=== PATIENT | male | born 1960 | race Two or more races ===

== ENCOUNTER 2016-11-26 10:24 | Inpatient (IN) | payer MEDICAID ==
[~2016-11-26] VITALS: Ht 167.6 cm; Wt 97.2 kg
[2016-11-26] MEDS ORDERED: MORPHINE SULF INJ 2 MG/ML SYRINGE 1ML IV ONE (11:00)
[2016-11-26] MEDS ORDERED: PANTOPRAZOLE 40 MG/10 ML VIAL IV ONE (11:00)
[2016-11-26] MEDS ORDERED: ASPirin 81 mg TAB PO ONE (11:00)
[2016-11-26] MEDS ORDERED: ONDANSETRON HCL 4 MG/2 ML VIAL IV ONE (11:00)
[2016-11-26 11:14] LABS: Hematocrit 42.6 % (41.0-53.0); Mean Corpuscular Hemoglobin 28.6 pg (28.0-32.0); Mean Corpuscular Hgb Conc. 32.8 g/dL (32.0-36.0); Mean Corpuscular Volume 87.2 fL (80.0-100.0); Mean Platelet Volume 8.7 fL (6.9-10.8); Platelet Count (auto) 193 10^3/uL (140-450); Red Cell Distribution Width 14.4 % (11.8-14.3); White Blood Cell 5.7 10^3/uL (4.4-10.8)
[2016-11-26 11:20] LABS: Metamyelocytes % 0; Myelocytes % 0; Promyelocytes % 0; Reactive Lymphocytes 0
[2016-11-26 11:36] LABS: INR 1.04 (0.9-1.15); Partial Thromboplastin Time 29.6 sec (22.64-33.71); Prothrombin Time 11.3 sec (9.37-12.3)
[2016-11-26 11:38] LABS: Albumin 3.4 g/dL (3.4-5.0); Alkaline Phosphatase 65 U/L (45-117); Amylase 47 U/L (25-115); Anion Gap 7 (5-15); Aspartate Aminotransferase 25 U/L (15-37); B-Type Natriuretic Peptide 861.72 pg/mL (0-100); BUN/Creatinine Ratio 16.3; Bilirubin, Total 0.7 mg/dL (0.2-1.0); Blood Urea Nitrogen 13 mg/dL (7-18); Calcium 8.9 mg/dL (8.5-10.1); Carbon Dioxide 30 mmol/L (21-32); Chloride 104 mmol/L (98-107); GFR African American 130 mL/min; GFR Non-African American 107 mL/min; Glucose 73 mg/dL (74-106); Magnesium 2.2 mg/dL (1.6-2.6); Potassium 4.6 mmol/L (3.5-5.1); Sodium 141 mmol/L (136-145); Total Protein 7.2 g/dL (6.4-8.2)
[2016-11-26 11:51] LABS: Temperature: 23.7 C (20.0-25.0)
[2016-11-26] MEDS ORDERED: FUROSEMIDE 40 MG/4 ML VIAL IV ONE (12:15)
[2016-11-26 12:28] LABS: Ovalocytes FEW; Platelet Estimate Adequate; Stomatocytes Few
[2016-11-26] MEDS ORDERED: THIAMINE HCL 100 MG/ML 2ML VIAL IV ONE (12:30)
[2016-11-26] MEDS ORDERED: LACTULOSE 20Gm/30ML SOLN PO PRN (12:30)
[2016-11-26] MEDS ORDERED: MORPHINE SULF INJ 2 MG/ML SYRINGE 1ML IV PRN ×2 (12:30)
[2016-11-26] MEDS ORDERED: LORazepam 0.5 MG TAB PO PRN (12:30)
[2016-11-26] MEDS ORDERED: HYDROcodone-ACET 5/325MG TAB PO PRN (12:30)
[2016-11-26] MEDS ORDERED: chlordiazePOXIDE HCL 25 MG CAP PO PRN (12:30)
[2016-11-26] MEDS ORDERED: PROMETHAZINE HCL 25 MG/ML 1ML IV PRN (12:30)
[2016-11-26] MEDS ORDERED: ACETAMINOPHEN 500 MG TAB PO PRN (12:30)
[2016-11-26] MEDS ORDERED: TEMAZEPAM 15 MG CAP PO PRN (12:30)
[2016-11-26] MEDS: SODIUM CHLOR 0.9% PF (SALINE LOCK) 10ML VIAL IV SCH ×2 (13:37→21:28)
[2016-11-26 14:43] VITALS: BP 108/75
[2016-11-26 17:19] VITALS: BP 115/73
[2016-11-26] MEDS: chlordiazePOXIDE HCL 5 MG CAP PO SCH ×2 (17:43→23:56)
[2016-11-26] MEDS: ATORVASTATIN 20 MG TAB PO SCH (21:28)
[2016-11-26 22:00] VITALS: BP 97/60
[2016-11-27] MEDS: NITROGLYCERIN 0.4 MG SL TAB SL PRN ×2 (04:21→04:27)
[2016-11-27 04:54] VITALS: BP 116/72
[2016-11-27] MEDS: SODIUM CHLOR 0.9% PF (SALINE LOCK) 10ML VIAL IV SCH ×3 (05:31→23:00)
[2016-11-27] MEDS: chlordiazePOXIDE HCL 5 MG CAP PO SCH ×3 (05:36→17:30)
[2016-11-27 06:47] LABS: B-Type Natriuretic Peptide 535.31 pg/mL (0-100)
[2016-11-27 06:51] LABS: Temperature: 22.9 C (20.0-25.0)
[2016-11-27 07:03] LABS: Albumin 3.2 g/dL (3.4-5.0); BUN/Creatinine Ratio 22.2; Bilirubin, Total 0.8 mg/dL (0.2-1.0); Total Protein 7.1 g/dL (6.4-8.2)
[2016-11-27 09:00] VITALS: BP 125/73
[2016-11-27] MEDS: THIAMINE HCL 100 MG/ML 2ML VIAL IV SCH (09:18)
[2016-11-27] MEDS: ENALAPRIL MALEATE 2.5 MG TAB PO SCH (09:19)
[2016-11-27] MEDS: ENOXAPARIN SOD 40 MG/0.4 ML SYRINGE SC SCH (09:19)
[2016-11-27] MEDS: ASPirin 81 mg TAB PO SCH (09:19)
[2016-11-27] MEDS: PANTOPRAZOLE 40 MG TAB PO SCH (09:20)
[2016-11-27] MEDS ORDERED: ISOSORBIDE MONONITRATE 60 MG TAB PO SCH (10:00)
[2016-11-27 12:48] VITALS: BP 99/60
[2016-11-27] MEDS ORDERED: ENAL2.5T PO (13:03)
[2016-11-27] MEDS ORDERED: POTA20TA53 PO (13:03)
[2016-11-27] MEDS ORDERED: CARV3.1240 PO (13:03)
[2016-11-27] MEDS ORDERED: ISOS10TA2 PO (13:03)
[2016-11-27] MEDS ORDERED: FURO40TA4 PO (13:03)
[2016-11-27] MEDS ORDERED: OMEP20CA74 OR (13:03)
[2016-11-27] MEDS ORDERED: FUROSEMIDE 20 MG/2 ML VIAL IV ONE (14:30)
[2016-11-27 16:37] VITALS: BP 98/51
[2016-11-27 20:35] VITALS: BP 93/50
[2016-11-27] MEDS: ATORVASTATIN 20 MG TAB PO SCH (23:00)
[2016-11-28] MEDS: chlordiazePOXIDE HCL 5 MG CAP PO SCH ×5 (00:54→23:44)
[2016-11-28 04:27] VITALS: BP 121/64
[2016-11-28] MEDS: SODIUM CHLOR 0.9% PF (SALINE LOCK) 10ML VIAL IV SCH ×3 (06:23→22:29)
[2016-11-28 08:13] VITALS: BP 104/72
[2016-11-28] MEDS: CARVEDILOL 3.125 MG TAB PO SCH ×3 (08:35→22:00)
[2016-11-28 09:00] VITALS: BP 104/72
[2016-11-28] MEDS: ENALAPRIL MALEATE 2.5 MG TAB PO SCH (10:00)
[2016-11-28] MEDS: ENOXAPARIN SOD 40 MG/0.4 ML SYRINGE SC SCH ×2 (10:22→10:30)
[2016-11-28] MEDS: THIAMINE HCL 100 MG/ML 2ML VIAL IV SCH (10:22)
[2016-11-28] MEDS: ASPirin 81 mg TAB PO SCH (10:25)
[2016-11-28] MEDS: PANTOPRAZOLE 40 MG TAB PO SCH (10:25)
[2016-11-28 13:00] VITALS: BP 105/70
[2016-11-28 17:00] VITALS: BP 104/70
[2016-11-28 22:00] VITALS: BP 110/60
[2016-11-28] MEDS: ATORVASTATIN 20 MG TAB PO SCH (22:30)
[2016-11-29 01:03] LABS: Urine Bilirubin Negative (Negative); Urine Blood Negative /uL (Negative); Urine Color Yellow (Yellow); Urine Glucose Normal (Normal); Urine Ketone Negative (Negative); Urine Nitrite Negative (Negative); Urine RBC <1 /hpf (0 - 3); Urine Urobilinogen Normal (Negative)
[2016-11-29 04:30] VITALS: BP 102/63
[2016-11-29] MEDS: SODIUM CHLOR 0.9% PF (SALINE LOCK) 10ML VIAL IV SCH ×3 (06:22→21:49)
[2016-11-29] MEDS: chlordiazePOXIDE HCL 5 MG CAP PO SCH ×3 (06:22→18:37)
[2016-11-29 07:48] LABS: Basophils # (auto) 0 uL; Basophils % (auto) 0.7 % (0.0-2.0); Eosinophils # (auto) 0.2 uL; Eosinophils % (auto) 3.7 % (0.0-7.0); Hematocrit 44.1 % (41.0-53.0); Hemoglobin 14.6 g/dL (13.5-17.5); Lymphocytes # (auto) 1.3 uL; Lymphocytes % (auto) 24.6 % (10.0-50.0); Mean Corpuscular Hemoglobin 28.9 pg (28.0-32.0); Mean Corpuscular Volume 87.7 fL (80.0-100.0); Mean Platelet Volume 9.1 fL (6.9-10.8); Monocytes % (auto) 17.5 % (0.0-12.0); Neutrophils # (auto) 2.9 uL; Neutrophils % (auto) 53.5 % (37.0-80.0); Nucleated Red Blood Cells % 0.1 %; Platelet Count (auto) 187 10^3/uL (140-450); Red Cell Distribution Width 13.9 % (11.8-14.3); White Blood Cell 5.5 10^3/uL (4.4-10.8)
[2016-11-29 08:23] LABS: Albumin 3.3 g/dL (3.4-5.0); BUN/Creatinine Ratio 18.7; Bilirubin, Total 0.6 mg/dL (0.2-1.0); Potassium 4.4 mmol/L (3.5-5.1); Total Protein 7.4 g/dL (6.4-8.2)
[2016-11-29 09:00] VITALS: BP 121/64
[2016-11-29 09:04] LABS: Temperature: 21.9 C (20.0-25.0)
[2016-11-29] MEDS ORDERED: IOHEXOL 350 MG/ML 100ML IJ ONE ×2 (09:33→09:50)
[2016-11-29] MEDS ORDERED: LIDOCAINE 2%HCL (LOCAL ANESTH.) INJ 20ML MDV ONE (09:33)
[2016-11-29] MEDS: ENALAPRIL MALEATE 2.5 MG TAB PO SCH (10:00)
[2016-11-29] MEDS: THIAMINE HCL 100 MG/ML 2ML VIAL IV SCH (10:00)
[2016-11-29] MEDS: ASPirin 81 mg TAB PO SCH (10:00)
[2016-11-29] MEDS: CARVEDILOL 3.125 MG TAB PO SCH ×2 (10:00→21:52)
[2016-11-29] MEDS: PANTOPRAZOLE 40 MG TAB PO SCH (10:00)
[2016-11-29] MEDS ORDERED: ANGIOMAX 250 MG VIAL IV ONE (10:25)
[2016-11-29] MEDS ORDERED: MIDAZOLAM HCL 1MG/1ML-2 ML VIAL ONE (10:26)
[2016-11-29] MEDS ORDERED: SODIUM CHL 0.9% 0 ML ONE (10:26)
[2016-11-29] MEDS ORDERED: fentaNYL CITRATE 100 MCG/2 ML VL ONE (10:26)
[2016-11-29] MEDS ORDERED: FUROSEMIDE 40 MG/4 ML VIAL IV ONE (13:00)
[2016-11-29 17:00] VITALS: BP 108/69
[2016-11-29] MEDS: ATORVASTATIN 20 MG TAB PO SCH (21:52)
[2016-11-29 22:00] VITALS: BP 107/61
[2016-11-30] MEDS: chlordiazePOXIDE HCL 5 MG CAP PO SCH ×2 (01:05→07:10)
[2016-11-30 05:11] VITALS: BP 109/73
[2016-11-30] MEDS: SODIUM CHLOR 0.9% PF (SALINE LOCK) 10ML VIAL IV SCH (05:21)
[2016-11-30 08:12] VITALS: BP 107/72
[2016-11-30] MEDS: THIAMINE HCL 100 MG/ML 2ML VIAL IV SCH (09:59)
[2016-11-30] MEDS: PANTOPRAZOLE 40 MG TAB PO SCH (09:59)
[2016-11-30] MEDS: ASPirin 81 mg TAB PO SCH (09:59)
[2016-11-30] MEDS: CARVEDILOL 3.125 MG TAB PO SCH (10:00)
[2016-11-30] MEDS: ENALAPRIL MALEATE 2.5 MG TAB PO SCH (10:01)
[2016-11-30] MEDS: ENOXAPARIN SOD 40 MG/0.4 ML SYRINGE SC SCH (10:02)
[2016-11-30 11:55] VITALS: BP 116/73
== END 2016-11-30 13:44 | disposition home or self-care (01) | DRG 191 ==
LOC: ER 10:24 → TELE 10:25 → TELE-E-ADS 15:02 → TELE-CENTR 15:29
PROVIDERS: ADMIT Internal Medicine; ATTEND Internal Medicine
PROC: 4A023N7 Measurement of Cardiac Sampling and Pressure, Left Heart, Percutaneous Approach (ICD-10-PCS; principal; 2016-11-29)
PROC: B2111ZZ Fluoroscopy of Multiple Coronary Arteries using Low Osmolar Contrast (ICD-10-PCS; 2016-11-29)
PROC: B41F1ZZ Fluoroscopy of Right Lower Extremity Arteries using Low Osmolar Contrast (ICD-10-PCS; 2016-11-29)
DX: I25.5 Ischemic cardiomyopathy (principal); I11.0 Hypertensive heart disease with heart failure; I50.42 Chronic combined systolic (congestive) and diastolic (congestive) heart failure; Z86.74 Personal history of sudden cardiac arrest; I25.10 Atherosclerotic heart disease of native coronary artery without angina pectoris; E78.5 Hyperlipidemia, unspecified; E66.9 Obesity, unspecified; F41.9 Anxiety disorder, unspecified; E78.00 Pure hypercholesterolemia, unspecified; K59.00 Constipation, unspecified; G47.00 Insomnia, unspecified; K57.30 Diverticulosis of large intestine without perforation or abscess without bleeding; I25.2 Old myocardial infarction; Z83.3 Family history of diabetes mellitus; Z82.49 Family history of ischemic heart disease and other diseases of the circulatory system; Z71.3 Dietary counseling and surveillance; Z68.34 Body mass index [BMI] 34.0-34.9, adult
CPT/HCPCS: 93458; 96374; 96375; 99291; G0278; 36415; 71010; 74176; 80053; 80061; 80320; 81001; 82150; 82550; 83690; 83735; 83880; 84443; 84484; 85007; 85025; 85027; 85379; 85610; 85652; 85730; 86141; 87081; 93005; 99152; 99153; C9113; J2250; J2405

== ENCOUNTER 2017-02-10 10:38 | Emergency (ER) | payer MEDICAID ==
[~2017-02-10] VITALS: Ht 167.6 cm; Wt 105.2 kg
[~2017-02-10 10:38] MED LIST: ATOR40TA52 PO; CARV3.1240 PO; ENAL2.5T PO; FURO40TA4 PO; ISOS10TA2 PO; NITR0.4S29 SL; OMEP20CA74 OR; POTA20TA53 PO
[2017-02-10 11:36] LABS: Basophils # (auto) 0.2 uL; Basophils % (auto) 4.5 % (0.0-2.0); Eosinophils # (auto) 0.2 uL; Eosinophils % (auto) 4.3 % (0.0-7.0); Hematocrit 38.6 % (41.0-53.0); Hemoglobin 12.8 g/dL (13.5-17.5); Lymphocytes # (auto) 0.9 uL; Lymphocytes % (auto) 19.6 % (10.0-50.0); Mean Corpuscular Hgb Conc. 33.2 g/dL (32.0-36.0); Mean Corpuscular Volume 84.3 fL (80.0-100.0); Monocytes # (auto) 0.9 uL; Neutrophils # (auto) 2.3 uL; Neutrophils % (auto) 51.2 % (37.0-80.0); Platelet Count (auto) 191 10^3/uL (140-450); Red Blood Cells 4.58 10^6/uL (4.5-5.90); White Blood Cell 4.6 10^3/uL (4.4-10.8)
[2017-02-10 11:38] LABS: Monocytes % (auto) 20.4 % (0.0-12.0)
[2017-02-10 12:28] LABS: Alanine Aminotransferase 23 U/L (16-61); Albumin 3.6 g/dL (3.4-5.0); Alkaline Phosphatase 74 U/L (45-117); Anion Gap 6 (5-15); Aspartate Aminotransferase 23 U/L (15-37); BUN/Creatinine Ratio 15.9; Bilirubin, Total 0.5 mg/dL (0.2-1.0); Blood Urea Nitrogen 11 mg/dL (7-18); Calcium 8.6 mg/dL (8.5-10.1); Carbon Dioxide 29 mmol/L (21-32); Chloride 103 mmol/L (98-107); GFR African American 154 mL/min; GFR Non-African American 127 mL/min; Glucose 76 mg/dL (74-106); Magnesium 2.1 mg/dL (1.6-2.6); Potassium 4.2 mmol/L (3.5-5.1); Sodium 138 mmol/L (136-145); Total Protein 7.3 g/dL (6.4-8.2)
[2017-02-10 14:38] VITALS: BP 118/67
[2017-02-10] MEDS ORDERED: ALBUTEROL SULF 2.5 MG/0.5ML(0.5%) NEB SOLN NEB ONE (15:30)
[2017-02-10] MEDS ORDERED: IPRATROPIUM BROM 0.5 MG/2.5ML INH SOL NEB ONE (15:30)
== END 2017-02-10 16:34 | disposition home or self-care (01) ==
LOC: ER 10:38
DX: J20.9 Acute bronchitis, unspecified (principal); F17.210 Nicotine dependence, cigarettes, uncomplicated; I25.2 Old myocardial infarction; I11.0 Hypertensive heart disease with heart failure; I50.9 Heart failure, unspecified; Z86.73 Personal history of transient ischemic attack (TIA), and cerebral infarction without residual deficits
CPT/HCPCS: 36415; 71020; 80053; 83735; 83880; 84484; 85025; 93005; 94640

== ENCOUNTER 2017-11-11 14:30 | Inpatient (IN) | payer MEDICAID ==
[~2017-11-11] VITALS: Ht 167.6 cm; Wt 111.5 kg
[~2017-11-11 14:30] MED LIST changes: +ALBU2TAB4 PO; -ATOR40TA52 PO; +ISOS60TA24 PO; +UMEC1INH IN
[2017-11-11 15:49] LABS: Basophils # (auto) 0 uL; Eosinophils # (auto) 0.1 uL; Eosinophils % (auto) 3.1 % (0.0-7.0); Hematocrit 37.3 % (41.0-53.0); Hemoglobin 12.1 g/dL (13.5-17.5); Lymphocytes # (auto) 0.9 uL; Lymphocytes % (auto) 19.9 % (10.0-50.0); Mean Corpuscular Hemoglobin 27.1 pg (28.0-32.0); Mean Corpuscular Hgb Conc. 32.5 g/dL (32.0-36.0); Mean Corpuscular Volume 83.3 fL (80.0-100.0); Monocytes # (auto) 0.5 uL; Monocytes % (auto) 12.1 % (0.0-12.0); Neutrophils # (auto) 2.8 uL; Neutrophils % (auto) 63.9 % (37.0-80.0); Nucleated Red Blood Cells % 0.1 %; Platelet Count (auto) 174 10^3/uL (140-450); Red Blood Cells 4.47 10^6/uL (4.5-5.90); Red Cell Distribution Width 18.7 % (11.8-14.3); White Blood Cell 4.4 10^3/uL (4.4-10.8)
[2017-11-11 16:12] LABS: Alanine Aminotransferase 12 U/L (16-61); Alkaline Phosphatase 46 U/L (45-117); Anion Gap 5 (5-15); Aspartate Aminotransferase 12 U/L (15-37); BUN/Creatinine Ratio 20.8; Bilirubin, Total 0.4 mg/dL (0.2-1.0); Blood Urea Nitrogen 10 mg/dL (7-18); Carbon Dioxide 16 mmol/L (21-32); Chloride 130 mmol/L (98-107); GFR African American 233 mL/min; GFR Non-African American 192 mL/min; Glucose 65 mg/dL (74-106); Magnesium 1.3 mg/dL (1.6-2.6); Sodium 151 mmol/L (136-145); Total Protein 3.9 g/dL (6.4-8.2)
[2017-11-11 16:20] LABS: INR 1.27 (0.9-1.15); Partial Thromboplastin Time 29.3 sec (23.78-33.04); Prothrombin Time 13.4 sec (9.27-12.13)
[2017-11-11 16:31] LABS: Calcium < 5.0 mg/dL (8.5-10.1); Potassium 2.5 mmol/L (3.5-5.1)
[2017-11-11] MEDS ORDERED: WARF4TAB33 PO (16:36)
[2017-11-11] MEDS ORDERED: ATOR20TA50 PO (16:36)
[2017-11-11] MEDS ORDERED: PANT1INJ3 PO (16:36)
[2017-11-11] MEDS ORDERED: ALPR0.25 PO (16:36)
[2017-11-11] MEDS ORDERED: ASPI-378 PO (16:36)
[2017-11-11] MEDS ORDERED: HYDR-4683 PO (16:36)
[2017-11-11] MEDS ORDERED: LEV50T PO (16:36)
[2017-11-11] MEDS ORDERED: FER325T PO (16:36)
[2017-11-11] MEDS ORDERED: AMIO200T33 PO (16:36)
[2017-11-11] MEDS ORDERED: CALCIUM GLUC 4.65meq/50ml D5AE 50 ML IV ONE (16:45)
[2017-11-11] MEDS ORDERED: POTASSIUM CHL 20 Meq TABLET PO ONE ×2 (16:45)
[2017-11-11 17:27] LABS: Albumin 3.5 g/dL (3.4-5.0); BUN/Creatinine Ratio 16.8; Calcium 8.4 mg/dL (8.5-10.1); Potassium 4.2 mmol/L (3.5-5.1)
[2017-11-11 17:30] LABS: Bilirubin, Total 0.7 mg/dL (0.2-1.0)
[2017-11-11] MEDS ORDERED: TEMAZEPAM 15 MG CAP PO PRN (18:30)
[2017-11-11] MEDS ORDERED: LORazepam 0.5 MG TAB PO PRN (18:30)
[2017-11-11] MEDS ORDERED: ONDANSETRON HCL 4 MG/2 ML VIAL IV PRN (18:30)
[2017-11-11] MEDS ORDERED: NITROGLYCERIN 0.4 MG SL TAB SL PRN (18:30)
[2017-11-11] MEDS ORDERED: ACETAMINOPHEN 500 MG TAB PO PRN (18:30)
[2017-11-11] MEDS ORDERED: MORPHINE SULFATE 4 MG/ML SYR/VIAL IV PRN ×2 (18:30)
[2017-11-11] MEDS ORDERED: ACETAMINOPHEN 325 MG TAB PO ONE (19:15)
[2017-11-11] MEDS: CARVEDILOL 12.5 MG TAB PO SCH (20:55)
[2017-11-11] MEDS: ALPRAZolam 0.25 MG TAB PO SCH (20:55)
[2017-11-11] MEDS: LACTULOSE 20Gm/30ML SOLN PO PRN (20:56)
[2017-11-11 22:00] VITALS: BP 125/74
[2017-11-12] MEDS: FUROSEMIDE 40 MG/4 ML VIAL IV SCH ×2 (05:26→17:41)
[2017-11-12 05:27] VITALS: BP 122/79
[2017-11-12] MEDS ORDERED: PNEUMOCOCCAL VACC POLYS 25 MCG/0.5 ML VIAL IM SCH (06:00)
[2017-11-12 06:02] LABS: Basophils # (auto) 0 uL; Basophils % (auto) 0.4 % (0.0-2.0); Eosinophils # (auto) 0.2 uL; Eosinophils % (auto) 4.6 % (0.0-7.0); Hematocrit 36.6 % (41.0-53.0); Lymphocytes # (auto) 0.8 uL; Lymphocytes % (auto) 17.3 % (10.0-50.0); Mean Corpuscular Hgb Conc. 32.7 g/dL (32.0-36.0); Mean Corpuscular Volume 82.5 fL (80.0-100.0); Monocytes # (auto) 0.6 uL; Monocytes % (auto) 13.4 % (0.0-12.0); Neutrophils # (auto) 2.8 uL; Neutrophils % (auto) 64.3 % (37.0-80.0); Nucleated Red Blood Cells % 0.1 %; Platelet Count (auto) 171 10^3/uL (140-450); Red Blood Cells 4.43 10^6/uL (4.5-5.90); Red Cell Distribution Width 18.7 % (11.8-14.3); White Blood Cell 4.4 10^3/uL (4.4-10.8)
[2017-11-12 06:16] LABS: INR 1.27 (0.9-1.15); Prothrombin Time 13.4 sec (9.27-12.13)
[2017-11-12 06:17] LABS: Albumin 3.7 g/dL (3.4-5.0); BUN/Creatinine Ratio 17.4; Bilirubin, Total 1.1 mg/dL (0.2-1.0); Potassium 3.8 mmol/L (3.5-5.1)
[2017-11-12] MEDS: LACTULOSE 20Gm/30ML SOLN PO PRN (06:54)
[2017-11-12] MEDS: HYDROcodone-ACET 5/325MG TAB PO PRN (06:55)
[2017-11-12 07:41] LABS: Urine Bacteria NONE SEEN /hpf (None Seen); Urine Blood Negative /uL (Negative); Urine Specific Gravity 1.006 (1.001-1.035); Urine WBC <1 /hpf (0 - 3)
[2017-11-12 07:47] LABS: Alcohol, Urine < 3.0 mg/dL (0-5); Amphetamine Screen, Urine NEGATIVE (NEGATIVE); Barbiturate Scree,Urine NEGATIVE (NEGATIVE); Benzodiazephine Screen, Urine NEGATIVE (NEGATIVE); Cannabinoid Screen, Urine NEGATIVE (NEGATIVE); Cocaine Screen, Urine NEGATIVE (NEGATIVE); Opiate Scree,Urine NEGATIVE (NEGATIVE); Phencyclidine Screen, Urine NEGATIVE (NEGATIVE)
[2017-11-12 08:25] VITALS: BP 112/74
[2017-11-12] MEDS: NITROGLYCERIN 0.2MG/HR TOPICAL PATCH TD SCH (09:43)
[2017-11-12] MEDS: PANTOPRAZOLE 40 MG TAB PO SCH (09:44)
[2017-11-12] MEDS: POTASSIUM CHL 20 Meq TABLET PO SCH (09:44)
[2017-11-12] MEDS: ASPirin 81 mg TAB PO SCH (09:44)
[2017-11-12] MEDS: CARVEDILOL 12.5 MG TAB PO SCH ×2 (09:44→21:52)
[2017-11-12] MEDS: FERROUS SULFATE 325 MG TAB PO SCH (09:44)
[2017-11-12] MEDS: LEVOTHYROXINE SODIUM 50 MCG TAB PO SCH (09:45)
[2017-11-12] MEDS: ISOSORBIDE MONONITRATE 60 MG TAB PO SCH (09:45)
[2017-11-12] MEDS: ENALAPRIL MALEATE 2.5 MG TAB PO SCH (09:45)
[2017-11-12] MEDS: ALPRAZolam 0.25 MG TAB PO SCH ×2 (09:46→21:52)
[2017-11-12] MEDS ORDERED: ENOXAPARIN SOD 40 MG/0.4 ML SYRINGE SC SCH (10:00)
[2017-11-12] MEDS ORDERED: ENOXAPARIN SOD 60 MG/0.6 ML SYRINGE SC ONE (11:00)
[2017-11-12 12:30] VITALS: BP 109/57
[2017-11-12 16:32] VITALS: BP 115/79
[2017-11-12] MEDS ORDERED: WARFARIN SODIUM 2.5 MG TAB PO ONE (17:00)
[2017-11-12 20:00] VITALS: BP 102/59
[2017-11-12] MEDS: ENOXAPARIN SOD 100 MG/1 ML SYRINGE SC SCH (21:52)
[2017-11-12 21:57] VITALS: BP 102/59
[2017-11-13] MEDS: HYDROcodone-ACET 5/325MG TAB PO PRN ×2 (01:55→20:00)
[2017-11-13 05:00] VITALS: BP 101/63
[2017-11-13] MEDS: FUROSEMIDE 40 MG/4 ML VIAL IV SCH (05:54)
[2017-11-13 06:49] LABS: Basophils # (auto) 0 uL; Basophils % (auto) 0.5 % (0.0-2.0); Eosinophils # (auto) 0.2 uL; Eosinophils % (auto) 4.6 % (0.0-7.0); Hematocrit 35.2 % (41.0-53.0); Hemoglobin 11.7 g/dL (13.5-17.5); Lymphocytes # (auto) 0.7 uL; Mean Corpuscular Hemoglobin 27.5 pg (28.0-32.0); Mean Corpuscular Hgb Conc. 33.2 g/dL (32.0-36.0); Mean Corpuscular Volume 82.9 fL (80.0-100.0); Monocytes # (auto) 0.6 uL; Monocytes % (auto) 14.4 % (0.0-12.0); Neutrophils # (auto) 2.4 uL; Neutrophils % (auto) 61.5 % (37.0-80.0); Nucleated Red Blood Cells % 0.1 %; Platelet Count (auto) 167 10^3/uL (140-450); Red Blood Cells 4.25 10^6/uL (4.5-5.90); Red Cell Distribution Width 18.5 % (11.8-14.3); White Blood Cell 3.9 10^3/uL (4.4-10.8)
[2017-11-13 06:57] LABS: Albumin 3.2 g/dL (3.4-5.0); Calcium 8.4 mg/dL (8.5-10.1); Potassium 3.9 mmol/L (3.5-5.1)
[2017-11-13 06:59] LABS: INR 1.2 (0.9-1.15); Prothrombin Time 12.7 sec (9.27-12.13)
[2017-11-13 07:00] LABS: Bilirubin, Total 0.6 mg/dL (0.2-1.0); Total Protein 6.5 g/dL (6.4-8.2)
[2017-11-13 08:50] VITALS: BP 103/68
[2017-11-13] MEDS: ENOXAPARIN SOD 100 MG/1 ML SYRINGE SC SCH ×2 (09:41→22:00)
[2017-11-13] MEDS: LEVOTHYROXINE SODIUM 50 MCG TAB PO SCH (09:43)
[2017-11-13] MEDS: ENALAPRIL MALEATE 2.5 MG TAB PO SCH (09:44)
[2017-11-13] MEDS: PANTOPRAZOLE 40 MG TAB PO SCH (09:45)
[2017-11-13] MEDS: NITROGLYCERIN 0.2MG/HR TOPICAL PATCH TD SCH (09:45)
[2017-11-13] MEDS: ASPirin 81 mg TAB PO SCH (09:45)
[2017-11-13] MEDS: ALPRAZolam 0.25 MG TAB PO SCH ×2 (09:45→22:09)
[2017-11-13] MEDS: ISOSORBIDE MONONITRATE 60 MG TAB PO SCH (09:46)
[2017-11-13] MEDS: CARVEDILOL 12.5 MG TAB PO SCH ×2 (09:46→22:08)
[2017-11-13] MEDS: FERROUS SULFATE 325 MG TAB PO SCH (09:46)
[2017-11-13] MEDS: POTASSIUM CHL 20 Meq TABLET PO SCH (09:46)
[2017-11-13 13:00] VITALS: BP 79/48
[2017-11-13 17:00] VITALS: BP 105/69
[2017-11-13] MEDS ORDERED: WARFARIN SODIUM 5 MG TAB PO ONE (17:00)
[2017-11-13 20:00] VITALS: BP 100/67
[2017-11-13 22:00] VITALS: BP 100/67
[2017-11-13] MEDS: SACUBITRIL-VALSARTAN 24mg/26mg TAB PO SCH (22:08)
[2017-11-14] MEDS: HYDROcodone-ACET 5/325MG TAB PO PRN ×2 (03:02→09:28)
[2017-11-14 05:00] VITALS: BP 100/70
[2017-11-14 05:35] LABS: INR 1.23 (0.9-1.15); Partial Thromboplastin Time 31.6 sec (23.78-33.04)
[2017-11-14 05:50] LABS: Albumin 3.4 g/dL (3.4-5.0); Calcium 8.3 mg/dL (8.5-10.1); Potassium 3.9 mmol/L (3.5-5.1)
[2017-11-14 05:52] LABS: BUN/Creatinine Ratio 17.4
[2017-11-14 05:55] LABS: Bilirubin, Total 0.6 mg/dL (0.2-1.0); Total Protein 6.6 g/dL (6.4-8.2)
[2017-11-14 09:09] VITALS: BP 136/70
[2017-11-14] MEDS: PANTOPRAZOLE 40 MG TAB PO SCH (09:28)
[2017-11-14] MEDS: FERROUS SULFATE 325 MG TAB PO SCH (09:35)
[2017-11-14] MEDS: ASPirin 81 mg TAB PO SCH (09:35)
[2017-11-14] MEDS: CARVEDILOL 12.5 MG TAB PO SCH ×2 (09:36→22:08)
[2017-11-14] MEDS: SACUBITRIL-VALSARTAN 24mg/26mg TAB PO SCH ×2 (09:36→22:08)
[2017-11-14] MEDS: POTASSIUM CHL 20 Meq TABLET PO SCH (09:37)
[2017-11-14] MEDS: ISOSORBIDE MONONITRATE 60 MG TAB PO SCH (09:37)
[2017-11-14] MEDS: LEVOTHYROXINE SODIUM 50 MCG TAB PO SCH (09:38)
[2017-11-14] MEDS: NITROGLYCERIN 0.2MG/HR TOPICAL PATCH TD SCH (09:38)
[2017-11-14] MEDS: ALPRAZolam 0.25 MG TAB PO SCH ×2 (09:38→22:08)
[2017-11-14] MEDS: ENOXAPARIN SOD 100 MG/1 ML SYRINGE SC SCH ×2 (09:39→22:09)
[2017-11-14 13:00] VITALS: BP 100/62
[2017-11-14] MEDS ORDERED: WARFARIN SODIUM 2.5 MG TAB PO ONE (17:00)
[2017-11-14 17:07] VITALS: BP 93/70
[2017-11-14 20:00] VITALS: BP 109/61
[2017-11-14 22:00] VITALS: BP 109/61
[2017-11-15] MEDS: HYDROcodone-ACET 5/325MG TAB PO PRN (02:59)
[2017-11-15 05:51] VITALS: BP 109/68
[2017-11-15 06:16] LABS: INR 1.33 (0.9-1.15); Partial Thromboplastin Time 35.4 sec (23.78-33.04)
[2017-11-15 08:41] VITALS: BP 95/70
[2017-11-15] MEDS: FERROUS SULFATE 325 MG TAB PO SCH (09:56)
[2017-11-15] MEDS: LEVOTHYROXINE SODIUM 50 MCG TAB PO SCH (09:56)
[2017-11-15] MEDS: POTASSIUM CHL 20 Meq TABLET PO SCH (09:56)
[2017-11-15] MEDS: PANTOPRAZOLE 40 MG TAB PO SCH (09:56)
[2017-11-15] MEDS: ENOXAPARIN SOD 100 MG/1 ML SYRINGE SC SCH ×2 (09:56→22:38)
[2017-11-15] MEDS: SACUBITRIL-VALSARTAN 24mg/26mg TAB PO SCH ×2 (09:56→22:37)
[2017-11-15] MEDS: ASPirin 81 mg TAB PO SCH (09:57)
[2017-11-15] MEDS: ALPRAZolam 0.25 MG TAB PO SCH ×2 (09:57→22:38)
[2017-11-15] MEDS: CARVEDILOL 12.5 MG TAB PO SCH ×2 (10:00→22:37)
[2017-11-15] MEDS: NITROGLYCERIN 0.2MG/HR TOPICAL PATCH TD SCH (10:00)
[2017-11-15 11:12] LABS: BUN/Creatinine Ratio 17.7; Calcium 8.6 mg/dL (8.5-10.1); Potassium 4.4 mmol/L (3.5-5.1)
[2017-11-15 13:00] VITALS: BP 93/58
[2017-11-15] MEDS: LACTULOSE 20Gm/30ML SOLN PO PRN (13:48)
[2017-11-15 17:00] VITALS: BP 103/69
[2017-11-15] MEDS ORDERED: WARFARIN SODIUM 2.5 MG TAB PO ONE (17:00)
[2017-11-15 20:00] VITALS: BP 101/56
[2017-11-15 22:09] VITALS: BP 101/56
[2017-11-16 05:00] VITALS: BP_SYST 112; BP_SYST 85; BP_DIAS 61; BP_DIAS 68
[2017-11-16 05:45] LABS: Hematocrit 39.6 % (41.0-53.0); Hemoglobin 13.1 g/dL (13.5-17.5); Mean Corpuscular Hemoglobin 27.1 pg (28.0-32.0); Mean Corpuscular Volume 82.3 fL (80.0-100.0); Platelet Count (auto) 197 10^3/uL (140-450); Red Blood Cells 4.81 10^6/uL (4.5-5.90); Red Cell Distribution Width 18.4 % (11.8-14.3); White Blood Cell 3.5 10^3/uL (4.4-10.8)
[2017-11-16 05:52] LABS: Band Neutrophils % (manual) 0; Basophils % (manual) 0 (0.0-2.0); Blast Cells 0; Metamyelocytes % 0; Myelocytes % 0; Promyelocytes % 0; Reactive Lymphocytes 0
[2017-11-16 05:59] LABS: INR 1.49 (0.9-1.15); Partial Thromboplastin Time 37.9 sec (23.78-33.04); Prothrombin Time 15.6 sec (9.27-12.13)
[2017-11-16 06:37] LABS: Eosinophils % (manual) 1 (0-7); Lymphocytes % (manual) 21 (10.0-50.0); Monocytes % (manual) 22 (0-12)
[2017-11-16 09:00] VITALS: BP 112/78
[2017-11-16] MEDS: FERROUS SULFATE 325 MG TAB PO SCH (09:53)
[2017-11-16] MEDS: ENOXAPARIN SOD 100 MG/1 ML SYRINGE SC SCH ×2 (09:53→21:48)
[2017-11-16] MEDS: ASPirin 81 mg TAB PO SCH (09:54)
[2017-11-16] MEDS: ALPRAZolam 0.25 MG TAB PO SCH ×2 (09:54→21:49)
[2017-11-16] MEDS: POTASSIUM CHL 20 Meq TABLET PO SCH (09:54)
[2017-11-16] MEDS: LEVOTHYROXINE SODIUM 50 MCG TAB PO SCH (09:54)
[2017-11-16] MEDS: PANTOPRAZOLE 40 MG TAB PO SCH (09:54)
[2017-11-16] MEDS: NITROGLYCERIN 0.2MG/HR TOPICAL PATCH TD SCH (09:54)
[2017-11-16] MEDS: SACUBITRIL-VALSARTAN 24mg/26mg TAB PO SCH ×2 (09:54→21:48)
[2017-11-16] MEDS: CARVEDILOL 3.125 MG TAB PO SCH ×2 (10:08→21:49)
[2017-11-16 13:00] VITALS: BP 111/76
[2017-11-16 17:00] VITALS: BP 116/70
[2017-11-16] MEDS ORDERED: WARFARIN SODIUM 10 MG TAB PO ONE (17:00)
[2017-11-16 20:00] VITALS: BP 113/77
[2017-11-16 21:30] VITALS: BP 113/77
[2017-11-16] MEDS: LACTULOSE 20Gm/30ML SOLN PO PRN (21:52)
[2017-11-17] MEDS: LACTULOSE 20Gm/30ML SOLN PO PRN (04:03)
[2017-11-17 05:00] VITALS: BP 120/79
[2017-11-17 06:14] LABS: INR 1.73 (0.9-1.15); Prothrombin Time 17.9 sec (9.27-12.13)
[2017-11-17 09:00] VITALS: BP 112/72
[2017-11-17] MEDS: ALPRAZolam 0.25 MG TAB PO SCH (10:43)
[2017-11-17] MEDS: POTASSIUM CHL 20 Meq TABLET PO SCH (10:44)
[2017-11-17] MEDS: FERROUS SULFATE 325 MG TAB PO SCH (10:44)
[2017-11-17] MEDS: PANTOPRAZOLE 40 MG TAB PO SCH (10:44)
[2017-11-17] MEDS: ASPirin 81 mg TAB PO SCH (10:44)
[2017-11-17] MEDS: SACUBITRIL-VALSARTAN 24mg/26mg TAB PO SCH (10:44)
[2017-11-17] MEDS: ENOXAPARIN SOD 100 MG/1 ML SYRINGE SC SCH (10:44)
[2017-11-17] MEDS: CARVEDILOL 3.125 MG TAB PO SCH (10:44)
[2017-11-17] MEDS: LEVOTHYROXINE SODIUM 50 MCG TAB PO SCH (10:45)
[2017-11-17] MEDS: NITROGLYCERIN 0.2MG/HR TOPICAL PATCH TD SCH (10:45)
[2017-11-17 13:00] VITALS: BP 116/68
== END 2017-11-17 15:14 | disposition home or self-care (01) | DRG 194 ==
LOC: ER 14:30 → TELE 14:31 → TELE-EAST 19:55
PROVIDERS: ADMIT Internal Medicine; ATTEND Internal Medicine
DX: I11.0 Hypertensive heart disease with heart failure (principal); E87.0 Hyperosmolality and hypernatremia; I42.9 Cardiomyopathy, unspecified; E66.01 Morbid (severe) obesity due to excess calories; E87.6 Hypokalemia; F41.9 Anxiety disorder, unspecified; I50.43 Acute on chronic combined systolic (congestive) and diastolic (congestive) heart failure; I25.10 Atherosclerotic heart disease of native coronary artery without angina pectoris; F17.210 Nicotine dependence, cigarettes, uncomplicated; E78.5 Hyperlipidemia, unspecified; I48.91 Unspecified atrial fibrillation; E03.9 Hypothyroidism, unspecified; Z68.39 Body mass index [BMI] 39.0-39.9, adult; I25.2 Old myocardial infarction; Z95.1 Presence of aortocoronary bypass graft; Z79.01 Long term (current) use of anticoagulants; Z79.02 Long term (current) use of antithrombotics/antiplatelets; Z82.49 Family history of ischemic heart disease and other diseases of the circulatory system; Z83.3 Family history of diabetes mellitus; Z95.2 Presence of prosthetic heart valve
CPT/HCPCS: 36415; 36600; 71046; 80048; 80053; 80307; 81001; 82550; 82805; 83735; 83880; 84443; 84484; 85007; 85025; 85027; 85379; 85610; 85652; 85730; 86141; 93005; 93306; 94761; 96374; J0610

== ENCOUNTER 2018-01-24 15:15 | Emergency (ER) | payer MEDICAID ==
[~2018-01-24] VITALS: Ht 167.6 cm; Wt 113.4 kg
[~2018-01-24 15:15] MED LIST changes: +ALPR0.25 PO; +AMIO200T33 PO; +ASPI-378 PO; +ATOR20TA50 PO; -ENAL2.5T PO; +FER325T PO; +HYDR-4683 PO; -ISOS10TA2 PO; -ISOS60TA24 PO; +LEV50T PO; -NITR0.4S29 SL; -OMEP20CA74 OR; +PANT1INJ3 PO; +WARF4TAB33 PO
[2018-01-24] MEDS ORDERED: FUROSEMIDE 20 MG/2 ML VIAL IV ONE (15:45)
[2018-01-24 16:33] LABS: Basophils # (auto) 0.1 uL; Basophils % (auto) 0.8 % (0.0-2.0); Eosinophils # (auto) 0.2 uL; Eosinophils % (auto) 2.9 % (0.0-7.0); Hematocrit 44.4 % (41.0-53.0); Hemoglobin 14.9 g/dL (13.5-17.5); Lymphocytes # (auto) 1.5 uL; Lymphocytes % (auto) 21.1 % (10.0-50.0); Mean Corpuscular Hemoglobin 28.1 pg (28.0-32.0); Mean Corpuscular Hgb Conc. 33.6 g/dL (32.0-36.0); Mean Corpuscular Volume 83.7 fL (80.0-100.0); Monocytes % (auto) 13.6 % (0.0-12.0); Neutrophils # (auto) 4.4 uL; Neutrophils % (auto) 61.6 % (37.0-80.0); Nucleated Red Blood Cells % 0.2 %; Platelet Count (auto) 248 10^3/uL (140-450); Red Cell Distribution Width 15.8 % (11.8-14.3); White Blood Cell 7.1 10^3/uL (4.4-10.8)
[2018-01-24 16:51] LABS: Albumin 4.2 g/dL (3.4-5.0); Calcium 9.1 mg/dL (8.5-10.1); Chloride 103 mmol/L (98-107); Potassium 4.5 mmol/L (3.5-5.1); Sodium 137 mmol/L (136-145)
[2018-01-24 16:54] LABS: Alanine Aminotransferase 54 U/L (16-61); Anion Gap 9 (5-15); Aspartate Aminotransferase 43 U/L (15-37); Blood Urea Nitrogen 17 mg/dL (7-18); Carbon Dioxide 25 mmol/L (21-32); GFR African American 87 mL/min; GFR Non-African American 72 mL/min; Glucose 90 mg/dL (74-106)
[2018-01-24 16:56] LABS: INR 1.08 (0.9-1.15); Partial Thromboplastin Time 29.2 sec (23.78-33.04); Prothrombin Time 11.5 sec (9.27-12.13)
[2018-01-24 16:59] LABS: Alkaline Phosphatase 110 U/L (45-117); Bilirubin, Total 0.5 mg/dL (0.2-1.0); Total Protein 8.2 g/dL (6.4-8.2)
[2018-01-24 17:36] VITALS: BP 128/80
[2018-01-24 18:36] LABS: Urine Bacteria NONE SEEN /hpf (None Seen); Urine Blood Negative /uL (Negative); Urine Mucus FEW (None Seen); Urine Specific Gravity 1.006 (1.001-1.035); Urine WBC None Seen /hpf (0 - 3)
== END 2018-01-24 17:52 | disposition home or self-care (01) ==
LOC: ER 15:15
DX: I11.0 Hypertensive heart disease with heart failure (principal); I50.9 Heart failure, unspecified; I25.2 Old myocardial infarction; J45.909 Unspecified asthma, uncomplicated; E78.5 Hyperlipidemia, unspecified; F17.210 Nicotine dependence, cigarettes, uncomplicated; Z86.73 Personal history of transient ischemic attack (TIA), and cerebral infarction without residual deficits
CPT/HCPCS: 36415; 71045; 80053; 81001; 83880; 84484; 85025; 85610; 85730; 96374; 99284; J1940

== ENCOUNTER 2019-01-09 09:21 | Inpatient (IN) | payer MEDICAID ==
[~2019-01-09] VITALS: Ht 170.2 cm; Wt 113.4 kg
[~2019-01-09 09:21] MED LIST changes: -HYDR-4683 PO; +HYDR-4833 PO; +POTA-220 PO; -POTA20TA53 PO
[2019-01-09 10:33] LABS: Basophils # (auto) 0.1 uL; Basophils % (auto) 0.7 % (0.0-2.0); Eosinophils # (auto) 0.2 uL; Eosinophils % (auto) 2.4 % (0.0-7.0); Hematocrit 37.1 % (41.0-53.0); Hemoglobin 12.3 g/dL (13.5-17.5); Lymphocytes # (auto) 0.4 uL; Lymphocytes % (auto) 5.5 % (10.0-50.0); Mean Corpuscular Hemoglobin 29.1 pg (28.0-32.0); Mean Corpuscular Hgb Conc. 33.2 g/dL (32.0-36.0); Mean Corpuscular Volume 87.8 fL (80.0-100.0); Monocytes # (auto) 0.9 uL; Monocytes % (auto) 11.9 % (0.0-12.0); Neutrophils # (auto) 5.8 uL; Neutrophils % (auto) 79.5 % (37.0-80.0); Platelet Count (auto) 151 10^3/uL (140-450); Red Blood Cells 4.23 10^6/uL (4.5-5.90); Red Cell Distribution Width 14.9 % (11.8-14.3); White Blood Cell 7.3 10^3/uL (4.4-10.8)
[2019-01-09 10:49] LABS: INR 1.19 (0.9-1.15); Partial Thromboplastin Time 30.2 sec (23.64-32.05)
[2019-01-09 10:54] LABS: Alanine Aminotransferase 17 U/L (16-61); Albumin 3.5 g/dL (3.4-5.0); Anion Gap 5 (5-15); Aspartate Aminotransferase 13 U/L (15-37); Blood Urea Nitrogen 11 mg/dL (7-18); Calcium 8.4 mg/dL (8.5-10.1); Carbon Dioxide 28 mmol/L (21-32); Chloride 105 mmol/L (98-107); Glucose 89 mg/dL (74-106); Potassium 4.3 mmol/L (3.5-5.1); Sodium 138 mmol/L (136-145)
[2019-01-09 10:59] LABS: Alkaline Phosphatase 74 U/L (45-117); BUN/Creatinine Ratio 13.1; Bilirubin, Total 1.2 mg/dL (0.2-1.0); GFR African American 122 mL/min; GFR Non-African American 100 mL/min; Total Protein 7.1 g/dL (6.4-8.2)
[2019-01-09] MEDS ORDERED: FUROSEMIDE 20 MG/2 ML VIAL IV ONE (11:15)
[2019-01-09] MEDS ORDERED: ASPirin 81 mg TAB PO ONE (11:15)
[2019-01-09] MEDS ORDERED: NITROGLYCERIN 0.4 MG SL TAB SL PRN (13:15)
[2019-01-09] MEDS ORDERED: ONDANSETRON HCL 4 MG/2 ML VIAL IV PRN (13:15)
[2019-01-09] MEDS ORDERED: MORPHINE SULF INJ 2 MG/ML SYRINGE 1ML IV PRN ×2 (13:15)
[2019-01-09] MEDS ORDERED: ALBUTEROL SULF 2.5 MG/0.5ML(0.5%) NEB SOLN NEB ONE (13:45)
[2019-01-09 14:26] LABS: Urine Bacteria NONE SEEN /hpf (None Seen); Urine Blood Negative /uL (Negative); Urine Specific Gravity 1.006 (1.001-1.035); Urine WBC <1 /hpf (0 - 3)
--- NOTE | 2019-01-09 14:44 | NUR ---
PATIENT ADMITTED TO TELE FROM ER. PATIENT A/OX4, ABLE TO AMBULATE WITH STEADY GAIT. REPORTS HAVING TO USE OXYGEN AT HOME, AND BROUGHT IN PERSONAL O2 TANK. THIS RN PLACED ON HOSPITAL WALL SUPPLY AT 2L NC. DENIES ANY PAIN AT THIS TIME. SKIN IS INTACT. PRIMARY LANGUAGE PORTUGUESE, BUT CAN SPEAK [place]UNE[place] CLEARLY. BED IN LOWEST LOCKED POSITION, CALL LIGHT PLACED WITHIN REACH, ABLE TO RETURN DEMONSTRATION ON USE. WILL CONTINUE TO MONITOR.
--- NOTE | 2019-01-09 15:00 | NUR ---
MED REC COMPLETED, TOOK ALL PERSONAL MEDICATIONS BACK HOME WITH HER.
[2019-01-09] MEDS ORDERED: SACU1TAB7 PO (15:28)
[2019-01-09] MEDS ORDERED: DOCU-94 PO (15:28)
[2019-01-09] MEDS ORDERED: FURO20TA3 PO (15:28)
[2019-01-09] MEDS ORDERED: SPIR25TA88 PO (15:28)
[2019-01-09] MEDS ORDERED: DRON400T PO (15:28)
[2019-01-09] MEDS ORDERED: POTA10TA51 PO (15:28)
[2019-01-09] MEDS ORDERED: CHOL20007 PO (15:28)
[2019-01-09 15:50] VITALS: BP 126/74
[2019-01-09 16:35] VITALS: BP 126/74
[2019-01-09 17:00] VITALS: BP 101/68
[2019-01-09] MEDS ORDERED: WARFARIN SODIUM 5 MG TAB PO ONE (17:00)
[2019-01-09] MEDS: SPIRONOLACTONE 25 MG TAB PO SCH (17:41)
--- NOTE | 2019-01-09 18:58 | NUR ---
MD REECE ROUNDING-ORDERS GIVEN THIS RN VERIFIED READ BACK. WILL ENDORSE CARE TO NOC RN.
--- NOTE | 2019-01-09 19:24 | NUR ---
CARE ENDORSED TO NILSON REYNOSO.
[2019-01-09] MEDS: LEVOFLOXACIN 500MG 100 ML IV SCH (20:32)
[2019-01-09] MEDS: CARVEDILOL 3.125 MG TAB PO SCH (21:34)
[2019-01-09] MEDS: SACUBITRIL-VALSARTAN 24mg/26mg TAB PO SCH (21:34)
[2019-01-09] MEDS: DRONEDARONE HCL 400 MG TAB PO SCH (21:35)
[2019-01-09] MEDS: ALPRAZolam 0.25 MG TAB PO SCH (21:35)
[2019-01-09 22:00] VITALS: BP 108/67
[2019-01-09] MEDS ORDERED: methylPREDNISolone SOD SUCC 125 MG/2 ML VL IV ONE (22:00)
[2019-01-09] MEDS ORDERED: ALBUTEROL SULF 2.5 MG/0.5ML(0.5%) NEB SOLN NEB PRN (22:15)
--- NOTE | 2019-01-09 22:30 | NUR ---
PT CHECKED FOR PRN TX. PT IS SLEEPING WITH NO ACUTE DISTRESS NOTED. TX IS NOT INDICATED AT THIS TIME. HR 98 RR 20 POX 97% ON 2 LPM VIA NC. B/S DECREASED.
[2019-01-09 22:46] VITALS: BP 101/68
[2019-01-10 05:11] VITALS: BP 106/76
[2019-01-10] MEDS: SPIRONOLACTONE 25 MG TAB PO SCH (05:31)
[2019-01-10 06:29] LABS: INR 1.18 (0.9-1.15); Partial Thromboplastin Time 31.3 sec (23.64-32.05)
[2019-01-10] MEDS ORDERED: LEVOTHYROXINE SODIUM 50 MCG TAB PO SCH (07:00)
--- NOTE | 2019-01-10 08:17 | NUR ---
OPENING SHIFT NOTE: PATIENT AWAKE, A/OX4. BREATHING EVEN AND UNLABORED. UPDATED PATIENT ON PLAN OF CARE. PATIENT VERBALIZED UNDERSTANDING. FALL PRECAUTIONS IN PLACE. CALL LIGHT WITHIN REACH WILL CONTINUE TO MONITOR.
--- NOTE | 2019-01-10 08:39 | NUR ---
RT NOTE: WENT TO PTS ROOM TO ASSESS FOR PRN BREATHING TX, PT SITTING UP IN BED. HR 80, RR 16, SPO2 97% ON RA, NO S/S OF SOB, NO INDICATION FOR TX AT THIS TIME. WILL CONTINUE TO MONITOR PT.
--- NOTE | 2019-01-10 08:50 | NUR ---
MD FERNANDEZ AT BEDSIDE. PATIENT REPORTS FEELING MUCH BETTER. NASAL CANNULA OFF, PATIENT TOLERATING WELL.
[2019-01-10 08:51] VITALS: BP 106/76
[2019-01-10] MEDS ORDERED: INFLUENZA QUAD 2019-2020 0.5ml SYRG IM ONE (09:15)
[2019-01-10] MEDS: SACUBITRIL-VALSARTAN 24mg/26mg TAB PO SCH (09:23)
[2019-01-10] MEDS: CARVEDILOL 3.125 MG TAB PO SCH (09:23)
[2019-01-10] MEDS: DRONEDARONE HCL 400 MG TAB PO SCH (09:23)
[2019-01-10] MEDS: ALPRAZolam 0.25 MG TAB PO SCH (09:24)
[2019-01-10] MEDS: LEVOFLOXACIN 500MG 100 ML IV SCH (09:24)
[2019-01-10] MEDS ORDERED: FERROUS SULFATE 325 MG TAB PO SCH (10:00)
[2019-01-10] MEDS ORDERED: POTASSIUM CHL 10 Meq TABLET PO SCH (10:00)
[2019-01-10] MEDS ORDERED: CHOLECALCIFEROL (VITD3) 1,000 UNIT TAB PO SCH (10:00)
[2019-01-10] MEDS ORDERED: FUROSEMIDE 20 MG/2 ML VIAL IV SCH (10:00)
[2019-01-10] MEDS ORDERED: PANTOPRAZOLE 40 MG TAB PO SCH (10:00)
[2019-01-10] MEDS ORDERED: ATORVASTATIN 20 MG TAB PO SCH (10:00)
--- NOTE | 2019-01-10 11:13 | NUR ---
MD CREWS AT BEDSIDE, OKAY TO GO HOME ONCE CARDIAC CLEARED.
--- NOTE | 2019-01-10 11:24 | NUR ---
VOICEMAIL LEFT FOR DR. REECE VIA TRANSFER EXCHANGE.
[2019-01-10 12:36] VITALS: BP 112/72
--- NOTE | 2019-01-10 13:06 | NUR ---
MD REECE AT BEDSIDE. PT CLEARED FROM CARDIAC STANDPOINT.
[2019-01-10 13:58] VITALS: BP 104/87
--- NOTE | 2019-01-10 14:06 | NUR ---
MD FERNANDEZ CALLED THIS RN BACK, PATIENT CLEARED FROM PULMONARY POINT OF VIEW.
--- NOTE | 2019-01-10 14:20 | NUR ---
PATIENT DISCHARGED HOME: PATIENT EDUCATED ON ALL FOLLOW UP APPOINTMENTS. EDUCATION MATERIALS REGARDING CARE DURING HOSPITAL VISIT GIVEN TO THE PATIENT. PATIENT LEFT WITH ALL BELONGINGS. IV DISCONTINUED, CATHETER INTACT MANUAL PRESSURE APPLIED. TELE BOX CLEANED AND RETURNED TO CARDIO UNIT. 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 RESPIRATIONS EVEN AND UNLABORED NO SIGNS OF DISTRESS NOTED.
[2019-01-10] MEDS ORDERED: WARFARIN SODIUM 5 MG TAB PO ONE (17:00)
[2019-01-11] MEDS ORDERED: POTASSIUM CHL 10 Meq TABLET PO SCH (10:00)
== END 2019-01-10 14:19 | disposition home or self-care (01) | DRG 194 ==
LOC: ER 09:22 → TELE 09:23 → TELE-WESTW 14:49
PROVIDERS: ADMIT Internal Medicine; ATTEND Internal Medicine
DX: I11.0 Hypertensive heart disease with heart failure (principal); J18.9 Pneumonia, unspecified organism; J96.11 Chronic respiratory failure with hypoxia; I50.43 Acute on chronic combined systolic (congestive) and diastolic (congestive) heart failure; F17.210 Nicotine dependence, cigarettes, uncomplicated; J45.909 Unspecified asthma, uncomplicated; E78.5 Hyperlipidemia, unspecified; K44.9 Diaphragmatic hernia without obstruction or gangrene; Z79.01 Long term (current) use of anticoagulants; I25.2 Old myocardial infarction; Z95.0 Presence of cardiac pacemaker; Z79.82 Long term (current) use of aspirin; Z79.899 Other long term (current) drug therapy; Z79.51 Long term (current) use of inhaled steroids; Z82.49 Family history of ischemic heart disease and other diseases of the circulatory system; Z83.3 Family history of diabetes mellitus; Z23 Encounter for immunization
CPT/HCPCS: 36415; 71046; 71250; 80053; 81001; 83880; 84484; 85025; 85610; 85730; 93005; 94640; 96374; 96375; G0378; J1956

== ENCOUNTER 2019-07-24 13:34 | Inpatient (IN) | payer OTHER, MEDICAID ==
[~2019-07-24] VITALS: Ht 165.1 cm; Wt 115.5 kg
[~2019-07-24 13:34] MED LIST changes: +CHOL20007 PO; +DOCU-94 PO; +DRON400T PO; +FURO20TA3 PO; -FURO40TA4 PO; -POTA-220 PO; +POTA10TA51 PO; +SACU1TAB7 PO; +SPIR25TA88 PO
[2019-07-24] MEDS ORDERED: SODIUM CHLORIDE 0.9% 1,000 ML IV ONE (13:41)
[2019-07-24] MEDS ORDERED: cefTRIAXone 1GM/50ML D5W 50 ML IV ONE (14:00)
[2019-07-24] MEDS ORDERED: ASCORBIC ACID 500 MG TAB PO ONE (14:00)
[2019-07-24] MEDS ORDERED: AZITHROMYCIN 500MG/ 250ML 250 ML IV ONE (14:00)
[2019-07-24 14:12] LABS: Basophils # (auto) 0 10 ^3/uL (0-0.2); Basophils % (auto) 1.1 % (0.0-2.0); Eosinophils # (auto) 0.2 10 ^3/uL (0-0.8); Eosinophils % (auto) 4.2 % (0.0-7.0); Hematocrit 40.5 % (41.0-53.0); Hemoglobin 13.3 g/dL (13.5-17.5); Lymphocytes # (auto) 0.7 10 ^3/uL (0.4-5.4); Lymphocytes % (auto) 18.8 % (10.0-50.0); Mean Corpuscular Hemoglobin 29.4 pg (28.0-32.0); Mean Corpuscular Hgb Conc. 32.8 g/dL (32.0-36.0); Mean Corpuscular Volume 89.8 fL (80.0-100.0); Monocytes # (auto) 0.6 10 ^3/uL (0-1.3); Monocytes % (auto) 15.5 % (0.0-12.0); Neutrophils # (auto) 2.3 10 ^3/uL (1.6-8.6); Neutrophils % (auto) 60.4 % (37.0-80.0); Platelet Count (auto) 158 10^3/uL (140-450); Red Blood Cells 4.51 10^6/uL (4.5-5.90); Red Cell Distribution Width 16.2 % (11.8-14.3); White Blood Cell 3.8 10^3/uL (4.4-10.8)
[2019-07-24 14:30] LABS: Albumin 3.3 g/dL (3.4-5.0); Anion Gap 5 (5-15); Blood Urea Nitrogen 13 mg/dL (7-18); Calcium 8.2 mg/dL (8.5-10.1); Carbon Dioxide 29 mmol/L (21-32); Chloride 104 mmol/L (98-107); Glucose 113 mg/dL (74-106); Potassium 4.1 mmol/L (3.5-5.1); Sodium 138 mmol/L (136-145)
[2019-07-24] MEDS ORDERED: LABETALOL HCL 5 MG/ML 4ML SYRINGE IV ONE (14:30)
[2019-07-24 14:36] LABS: Alanine Aminotransferase 20 U/L (16-61); Alkaline Phosphatase 85 U/L (45-117); Aspartate Aminotransferase 17 U/L (15-37); Bilirubin, Total 0.9 mg/dL (0.2-1.0); GFR African American 91 mL/min; GFR Non-African American 75 mL/min; Lactate Dehydrogenase 283 U/L (87-241)
[2019-07-24] MEDS ORDERED: FUROSEMIDE 20 MG/2 ML VIAL IV ONE (16:15)
[2019-07-24] MEDS ORDERED: diphenhdrAMINE HCL 50 MG/1 ML VL ONE (16:16)
[2019-07-24] MEDS ORDERED: EPINEPHrine HCL 1 MG/1 ML AMP ONE (16:17)
[2019-07-24] MEDS ORDERED: ONDANSETRON HCL 4 MG/2 ML VIAL ONE (16:27)
[2019-07-24] MEDS ORDERED: diphenhdrAMINE HCL 50 MG/1 ML VL IV ONE (16:30)
[2019-07-24] MEDS ORDERED: ONDANSETRON HCL 4 MG/2 ML VIAL IV ONE ×2 (16:30→16:45)
[2019-07-24] MEDS ORDERED: EPINEPHrine HCL 1 MG/1 ML AMP IM ONE (16:30)
[2019-07-24] MEDS ORDERED: NITROGLYCERIN 0.4 MG SL TAB SL PRN (18:30)
[2019-07-24] MEDS ORDERED: ACETAMINOPHEN 325 MG TAB PO PRN (18:30)
[2019-07-24] MEDS ORDERED: ALBUTEROL SULF HFA 90MCG INH 200DOSE IN SCH (18:30)
[2019-07-24] MEDS ORDERED: MORPHINE SULF INJ 2 MG/ML SYRINGE 1ML IV PRN (18:30)
[2019-07-24] MEDS ORDERED: LEVO50TA7 PO (18:38)
[2019-07-24] MEDS ORDERED: SPIR25TA8 PO (18:38)
[2019-07-24] MEDS ORDERED: SACU1TAB PO (18:38)
[2019-07-24] MEDS ORDERED: HYDROcodone-ACET 5/325MG TAB PO PRN (18:45)
[2019-07-24 21:30] VITALS: BP 107/76
--- NOTE | 2019-07-24 21:30 | NUR ---
Telemetry admit from ER CASS DENSON admitted to Telemetry unit. Patient oriented to DRAKE RODRÍGUEZ RN primary RN, unit, room, bed, and unit policies regarding patient care and visiting hours. Patient now on continuous telemetry monitoring, tele box #4 and telemetry reading on arrival to unit is Paced at 83 bpm. Patient placed on bedside oxygen, weighed by bedscale and encouraged to call if they need something. All questions and concerns addressed, patient verbalized understanding.
[2019-07-24 22:00] VITALS: BP 107/76
[2019-07-24] MEDS: ALBUTEROL SULF 2.5 MG/0.5ML(0.5%) NEB SOLN NEB SCH (22:10)
[2019-07-24 22:19] LABS: INR 1.38 (0.9-1.15)
[2019-07-24] MEDS: FUROSEMIDE 20 MG/2 ML VIAL IV SCH (22:23)
[2019-07-24] MEDS: SPIRONOLACTONE 25 MG TAB PO SCH (22:23)
[2019-07-24] MEDS: ALPRAZolam 0.25 MG TAB PO SCH (22:23)
[2019-07-24] MEDS: DOCUSATE SOD 100 MG CAP PO SCH (22:23)
[2019-07-25 00:44] VITALS: BP 107/56
[2019-07-25] MEDS: ALBUTEROL SULF 2.5 MG/0.5ML(0.5%) NEB SOLN NEB SCH ×4 (02:36→14:00)
[2019-07-25 04:59] VITALS: BP 120/67
[2019-07-25] MEDS: FUROSEMIDE 20 MG/2 ML VIAL IV SCH (06:25)
[2019-07-25 06:27] LABS: Urine WBC None Seen /hpf (0 - 3)
[2019-07-25 06:33] LABS: Urine Bacteria NONE SEEN /hpf (None Seen); Urine Blood Negative /uL (Negative); Urine Hyaline Cast FEW /lpf (0 - 2); Urine Specific Gravity 1.011 (1.001-1.035)
[2019-07-25 06:50] LABS: INR 1.37 (0.9-1.15)
--- NOTE | 2019-07-25 07:28 | NUR ---
Endorsed care to day shift RN. Patient verbalized feeling a lot better.
[2019-07-25 08:00] VITALS: BP 101/67
[2019-07-25 08:37] LABS: Basophils # (auto) 0 10 ^3/uL (0-0.2); Basophils % (auto) 0.7 % (0.0-2.0); Eosinophils # (auto) 0.2 10 ^3/uL (0-0.8); Eosinophils % (auto) 4.2 % (0.0-7.0); Hematocrit 38.5 % (41.0-53.0); Hemoglobin 12.4 g/dL (13.5-17.5); Lymphocytes # (auto) 0.8 10 ^3/uL (0.4-5.4); Lymphocytes % (auto) 20.8 % (10.0-50.0); Mean Corpuscular Hgb Conc. 32.2 g/dL (32.0-36.0); Mean Corpuscular Volume 90.1 fL (80.0-100.0); Monocytes # (auto) 0.6 10 ^3/uL (0-1.3); Neutrophils # (auto) 2.4 10 ^3/uL (1.6-8.6); Neutrophils % (auto) 60.3 % (37.0-80.0); Platelet Count (auto) 145 10^3/uL (140-450); Red Blood Cells 4.28 10^6/uL (4.5-5.90); Red Cell Distribution Width 16.4 % (11.8-14.3)
[2019-07-25 08:41] LABS: BUN/Creatinine Ratio 11.9; Calcium 8.6 mg/dL (8.5-10.1); Potassium 3.9 mmol/L (3.5-5.1)
[2019-07-25] MEDS ORDERED: Sacubitril-Valsartan (Entresto 49-51 mg) 1 TAB PO SCH (10:00)
[2019-07-25] MEDS ORDERED: ASPirin-EC 81 mg tab PO SCH (10:00)
[2019-07-25] MEDS ORDERED: FERROUS SULFATE 325 MG TAB PO SCH (10:00)
[2019-07-25] MEDS: ALPRAZolam 0.25 MG TAB PO SCH (10:00)
[2019-07-25] MEDS ORDERED: DRONEDARONE HCL 400 MG TAB PO SCH (10:00)
[2019-07-25] MEDS ORDERED: CHOLECALCIFEROL (VITD3) 1,000IU=25mCg TAB PO SCH (10:00)
[2019-07-25] MEDS ORDERED: ATORVASTATIN 20 MG TAB PO SCH (10:00)
[2019-07-25] MEDS ORDERED: LEVOTHYROXINE SODIUM 50 MCG TAB PO SCH (10:00)
[2019-07-25] MEDS ORDERED: POTASSIUM CHL 20 Meq TABLET PO SCH (10:00)
[2019-07-25] MEDS: DOCUSATE SOD 100 MG CAP PO SCH (10:07)
[2019-07-25] MEDS: SPIRONOLACTONE 25 MG TAB PO SCH (10:08)
[2019-07-25] MEDS ORDERED: WARF2.5T39 PO (10:25)
[2019-07-25] MEDS ORDERED: POTA-220 PO (10:25)
[2019-07-25] MEDS ORDERED: PRED20TA2 PO (10:28)
[2019-07-25] MEDS ORDERED: FURO20TA3 PO (11:03)
--- NOTE | 2019-07-25 11:03 | NUR ---
pt seen by Dr. Isaacs, he said he will discharge the pt, received order to cancel echocardiogram.
[2019-07-25 11:28] VITALS: BP 101/67
--- NOTE | 2019-07-25 11:48 | NUR ---
RYANNE STACKER DRIVER MADE AWARE PT HAS DC ORDER FOR HOME HEALTH SERVICES.
[2019-07-25 12:00] VITALS: BP 111/57
--- NOTE | 2019-07-25 12:30 | NUR ---
SPOKE WITH PATIENT, PT STATED HE DOESN'T WANT HOME HEALTH SERVICES, HE DOESN'T WANT A NURSE TO GO TO HIS HOUSE. PER PT HIS CAN TAKE CARE OF HIM AND HE CAN TAKE CARE OF HIMSELF, PT STATED THIS TIME HE WILL TAKE HIS MEDICATIONS PRESCRIBED.
--- NOTE | 2019-07-25 12:33 | NUR ---
I faxed home health order to [facility].
--- NOTE | 2019-07-25 12:43 | NUR ---
SPOKE WITH JODIE [employer] D[employer] STAND LOADER, MADE AWARE PT IS REFUSING FOR HOME HEALTH SERVICES, PER JODIE PATIENT CAN GO HOME.
--- NOTE | 2019-07-25 13:25 | NUR ---
Discharge instructions given as ordered. Encourage to follow up with Dr. Fuad Lopez on 07/28/19 at 1:30pm as instructed. Patient instructed to continue taking his home medications. All questions and concerns addressed. Patient verbalized understanding. Medication reconciliation form completed and copy given to patient. IV removed with catheter intact, pressure dressing applied. Telemetry unit returned to ICU. Patient taken to vehicle via wheelchair with all personal belongings, accompanied by staff and family member. No distress noted at time of departure.
--- NOTE | 2019-07-25 14:23 | NUR ---
Respiratory note: UNABLE TO ADMINISTER 1400 MEDNEB TX DUE TO PT BEING DISCHARGED. RN AWARE.
[2019-07-25] MEDS ORDERED: WARFARIN SODIUM 5 MG TAB PO ONE (17:00)
== END 2019-07-25 13:25 | disposition home health service (06) | DRG 292 ==
LOC: ER 13:34 → TELE 13:35 → TELE-EAST 21:15
PROVIDERS: ADMIT Hospitalist; ATTEND Hospitalist
DX: I11.0 Hypertensive heart disease with heart failure (principal); I16.1 Hypertensive emergency; E44.1 Mild protein-calorie malnutrition; I48.20 Chronic atrial fibrillation, unspecified; Z68.41 Body mass index [BMI] 40.0-44.9, adult; I25.10 Atherosclerotic heart disease of native coronary artery without angina pectoris; Z20.828 Contact with and (suspected) exposure to other viral communicable diseases; E78.5 Hyperlipidemia, unspecified; F17.210 Nicotine dependence, cigarettes, uncomplicated; Z79.01 Long term (current) use of anticoagulants; Z82.49 Family history of ischemic heart disease and other diseases of the circulatory system; Z86.73 Personal history of transient ischemic attack (TIA), and cerebral infarction without residual deficits; Z91.14 Patient's other noncompliance with medication regimen; Z95.2 Presence of prosthetic heart valve; Z95.810 Presence of automatic (implantable) cardiac defibrillator; Z99.81 Dependence on supplemental oxygen; Z83.3 Family history of diabetes mellitus; Z88.1 Allergy status to other antibiotic agents; I50.23 Acute on chronic systolic (congestive) heart failure; E66.01 Morbid (severe) obesity due to excess calories; J44.9 Chronic obstructive pulmonary disease, unspecified
CPT/HCPCS: 36415; 71045; 80048; 80053; 81001; 83615; 83735; 83880; 84443; 84484; 85025; 85610; 87040; 87070; 87804; 87880; 93005; 94640; 99291; G0378; J0171; J0696; J2405